=== PATIENT | female | born 1960 | race Caucasian/White ===

== ENCOUNTER 2018-05-20 09:03 | Emergency (ER) | payer OTHER ==
[2018-05-20] MEDS: ALBUTEROL 0.083% (NEB) 2.5 MG/3 ML AMP NEB (09:40)
[2018-05-20] MEDS: IPRATROPIUM (NEB) 0.5 MG/2.5 ML AMP NEB (09:40)
[2018-05-20] MEDS: PROMETHAZINE/DM (CUP) PO (09:52)
== END 2018-05-20 10:32 | disposition home or self-care (01) ==
LOC: FTE 09:03
DX: J20.9 Acute bronchitis, unspecified (principal); E03.9 Hypothyroidism, unspecified
CPT/HCPCS: 94664; 99283-25